=== PATIENT | female | born 1985 | race Caucasian/White ===

== ENCOUNTER 2016-11-05 21:46 | Emergency (ER) | payer MEDICAID ==
[~2016-11-05] VITALS: Ht 162.6 cm; Wt 80.7 kg
[~2016-11-05 21:46] MED LIST: ALBUTEROL0.09 MG/A1 IH; MOTRIN800 MG PO; SUMATRIPTAN SUC50 MG
[2016-11-05 22:02] VITALS: BP 153/104
--- NOTE | 2016-11-05 22:07 | NUR ---
ABULATED TO ER BED 4
--- NOTE | 2016-11-05 22:11 | NUR ---
PT C.O. OF COUGH SINCE SUNDAY. CHEST PAIN R/T COUGH, STATES ONLY HURTS WHEN COUGHING. DENIES FEVER AND CHILLS, NO NAUSEA/VOMITING. NO S/S OF ACUTE RESPIRATORY DISTRESS. PT VSS.
--- NOTE | 2016-11-05 22:16 | NUR ---
SYDNEE MILLER AT PT BEDSIDE EVALUATING PT.
[2016-11-05] MEDS ORDERED: ACETAMIN/CODEINE 120/12MG-5ML 5 ML UDC PO ONE (22:20)
[2016-11-05] MEDS ORDERED: DEXAMETHASONE 10 MG/ML VIAL PO ONE (22:20)
[2016-11-05 22:48] VITALS: BP 114/73
--- NOTE | 2016-11-05 22:48 | NUR ---
Patient discharged with v/s stable. Written and verbal after care instructions given and explained. Patient alert, oriented and verbalized understanding of instructions. Ambulatory with steady gait. All questions addressed prior to discharge. ID band removed. Patient advised to follow up with PMD. Rx of GUAIATUSSIN AND AZITHROMYCIN given. Patient educated on indication of medication including possible reaction and side effects. Opportunity to ask questions provided and answered.
== END 2016-11-05 22:48 | disposition home or self-care (01) ==
LOC: MED 21:46
DX: J02.9 Acute pharyngitis, unspecified (principal); J45.909 Unspecified asthma, uncomplicated; Z88.0 Allergy status to penicillin; Z90.49 Acquired absence of other specified parts of digestive tract
CPT/HCPCS: 99283; J1100